=== PATIENT | female | born 1975 | race Two or more races ===

== ENCOUNTER 2024-09-01 09:29 | Outpatient (AMB) | payer BC, SELFPAY ==
[2024-09-01 10:05] VITALS: BP 133/83; PULSE 80; RESP 19; TEMP 36.4; O2SAT 97; BMI 53.6
--- NOTE | 2024-09-01 10:05 | ORTHONT_ITS ---
Vital signs 09/01/24 10:05 Height 1.63 m Height Method Stated Weight 141.663 kg Weight Measurement Method Standing Scale BMI 53.6 BP 133/83 H Blood Pressure Source Automatic Cuff Blood Pressure Location Left Lower Arm Position Sitting Respiration 19 Pulse 80 Pulse Source Monitor Temp 97.6 F Temp Source Temporal Artery Scan Pulse Oximetry (%) 97 Oxygen Delivery Method Room Air Med/Allergies Allergies & Medications Allergies No Known Allergies Allergy (Verified 09/01/24 10:06) Medication Reconciliation ibuprofen 600 mg tablet 600 mg PO Q6H PRN 09/01/24 [History Confirmed 09/01/24] levothyroxine 25 mcg tablet (Synthroid) 25 mcg PO QDAY 09/01/24 [History Confirmed 09/01/24] naproxen 500 mg tablet 500 mg PO BID #60 tabs 09/01/24 [Rx] Exam Exam Patient is in no acute distress and is cooperative with the examination today. Breathing is nonlabored. Patient has a normal mood and affect. The patient has a gait that is nonantalgic Bilateral extremities were evaluated and demonstrates sensation intact to light touch. Palpable pedal pulses are present. No significant edema is present. Bilateral hips were examined. The patient has no pain with log roll of the hips. Internal rotation to 30 degrees and external rotation to 30 degrees is painless. Negative FADIR. Right knee was examined today. The right knee is in reasonable alignment. Range of motion from 0-120 degrees. Knee is stable to varus and valgus as well as AP translation with <5mm. Patient has a negative McMurrays. There is no pain with patellofemoral compression and no crepitus noted. The knee is nontender to palpation. Left knee was examined today. The left knee is in neutral alignment. Range of motion from 0-120 degrees. Knee is stable to varus and valgus as well as AP translation with <5mm. Patient has a negative McMurrays. There is no pain with patellofemoral compression and no crepitus noted. The knee is nontender to palpation diffusely. She is tender to palpation over the patella tendon X-rays demonstrate Minimal arthritis and no acute changes Assessment and Plan Problem List (1) Patellar tendinitis: Status: Acute Plan: Patient is a pleasant 48-year-old female with patella tendinitis And no significant conservative treatment. Her x-rays look great. We recommend weight loss and physical therapy as well as anti-inflammatories. She also reports back pain and we will start her with physical therapy for her back We will see her on an as-needed basis. We sent her prescription for anti- inflammatories and physical therapy Office Procedures GNS Level of Care Nursing/Assessment Patient Status: Initial/New Patient Nursing Assessment/Reassesment: Medication Reconciliation, Update PMH in EMR and Vital Signs Coordination of Care: Complex Care/Chronic Disease 5 or more, Education Complex Pt/Fam, Consent,records obtained, informed consent and Staff clarify orders New Patient Charge New Patient Point Assignment: 1092 New Patient Point Charge: SURGICAL PHYSICIAN ASSISTANT Level 3 (2902-2016) [place] Intake Visit Data Collection New Patient or Established: New Patient (never been to [facility]) Reason for Visit:: LEFT KNEE OSTEOARTHRITIS 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 This been ongoing for a year and a half. She Also reports having back pain recently. Has not had any injections. She has not been taking a lot of anti-inflammatories. She reports that she is on her feet all day and is very active Personal History Red flag PMH: none BMI Counceling provided: Yes Pain Pain level (0-10): 5 Pain duration: CONSTANT Pain location: anterior Pain quality: aching Pain timing: night, increases with activity and stairs Associated signs & symptoms: none Ambulatory data Ambulatory device: none Treatments Improvement with previous injections: No Improvement with PT: No Improvement with NSAIDS: yes Review of Systems Review of Systems: All systems negative unless otherwise noted in HPI.
== END 2024-09-01 10:31 | disposition home or self-care (01) ==
PROVIDERS: PCP Physician Assistant; Referring Provider Physician Assistant; Supervising Provider Orthopaedic Surgery Adult Reconstructive Orthopaedic Surgery; Visit Provider Orthopaedic Surgery Adult Reconstructive Orthopaedic Surgery
DX: M76.50 Patellar tendinitis, unspecified knee (principal); M25.562 Pain in left knee
CPT/HCPCS: 99203; G0463